=== PATIENT | female | born 1995 | race Caucasian/White ===

== ENCOUNTER 2021-09-23 10:42 | Emergency (ER) | payer BC, MEDICAID ==
[~2021-09-23] VITALS: Ht 162.6 cm; Wt 95.3 kg
[2021-09-23 10:54] VITALS: BP 146/76
--- NOTE | 2021-09-23 12:16 | NUR ---
PT SEEN AND TREATED BY DR VIVEROS, NO NURSING INTERVENTIONS PROVIDED
--- NOTE | 2021-09-23 12:17 | NUR ---
Patient discharged with v/s stable. Written and verbal after care instructions ABOUT PILONIDAL CYST given and explained. Patient verbalized understanding. Ambulatory with steady gait. All questions addressed prior to discharge. Advised to follow up with PMD.
== END 2021-09-23 12:17 | disposition home or self-care (01) ==
LOC: MED 10:42
DX: L05.01 Pilonidal cyst with abscess (principal)
CPT/HCPCS: 99281